=== PATIENT | female | born 1975 | race African-American/Black ===

== ENCOUNTER 2025-06-25 15:40 | Inpatient (IN) | payer MEDICAID, SELFPAY ==
[2025-06-25 15:41] VITALS: BP 113/80; PULSE 58; RESP 16; TEMP 37.1; O2SAT 100; BMI 20.5
[2025-06-25 16:40] VITALS: BP 124/77; PULSE 62; RESP 18; TEMP 36.6; O2SAT 99
[2025-06-25 16:52] LABS: Hematocrit 38.8 % (37-47); Hemoglobin 12.9 g/dL (12.0-15.0); Immature Granulocytes Count 0.020 X10^3/uL (0.0-0.0); Mean Corp Hgb Conc 33.2 g/dL (32-36); Mean Corpuscular Volume 90.9 fL (81-99); Mean Platelet Vol. 10.9 fl (6.2-12.0); NRBC Flagged by Analyzer 0 % (0-5); Platelet Count 176 K/mm3 (150-450); RBC Distribution Width CV 11.9 % (11.6-14.6); RBC Distribution Width SD 39.5 fl (35.1-43.9); Red Blood Count 4.27 M/mm3 (4.2-5.4); White Blood Count 7.1 K/mm3 (4.4-11.0)
[2025-06-25 17:00] VITALS: BP 119/74; PULSE 63; RESP 18; O2SAT 99
[2025-06-25 17:18] LABS: Internal QC Validated? YES +Cl - CLEAR BKGD; Pregnancy, Serum, hCG Quali. NEGATIVE Negative; Record Kit Lot#, Serum Preg. 964736
[2025-06-25 17:26] LABS: Alcohol, Blood (Medical)-Serum < 10.1 mg/dL (<=10.0)
[2025-06-25 17:48] LABS: AST(SGOT) 15 U/L (<=31); Alanine Aminotransfer ALT/SGPT 13 U/L (<=34); Albumin, Serum 3.9 g/dL (3.5-5.0); Alkaline Phosphatase 64 U/L (35-104); Anion Gap 11 (5-15); BUN 15 mg/dL (4-19); BUN/Creat Ratio 23.3 RATIO (10-20); Calcium,Total 8.8 mg/dL (7.6-11.0); Carbon Dioxide 22.2 mmol/L (21.0-32.0); Chloride 106 mmol/L (98-108); Estimated Creatinine Clearance 85.95 ml/min (50-250); Globulin 1.9 g/dL (2.2-4.2); Glucose 86 mg/dL (70-99); Potassium 3.6 mmol/L (3.3-5.1)
--- NOTE | 2025-06-25 17:58 | EX.ED.SAOD ---
HPI History of Present Illness Chief Complaint: Substance Abuse Informant: patient Narrative Narrative: Patient is a 49-year-old female with history of polysubstance abuse presenting for request of detox from cocaine and fentanyl. Patient states has been using regularly for the past few years and on for the past 10 years. She states she snorts it. She states she last used fentanyl 1 to 2 days ago and last used cocaine this morning. She is she started feel withdrawal symptoms of restlessness, mild nausea, anxiety, insomnia and diarrhea. She is feeling congestion and myalgias. Does smoke cigarettes. Denies any alcohol use. No other complaints or concerns at this time. [facility] Medical History Arthritis Substance abuse Neuropathy Home Medications ?Medication ?Instructions ?Recorded ?Last Taken ?Type gabapentin 800 mg tablet 800 mg PO 4X/DAY pain 06/25/25 Unknown History ibuprofen 800 mg tablet 800 mg PO TID PRN PRN pain 06/25/25 Unknown History trazodone 100 mg tablet 100 mg PO QHS mood 06/25/25 Unknown History Allergy/AdvReac Type Severity Reaction Status Date / Time No Known Allergies Allergy Verified 06/25/25 15:43 Social History Smoking Status: Current every day smoker tobacco type: cigarettes and e-cigarettes ROS ROS ED Constitutional Constitutional ED: Reports chills and sweats; Denies fever(s) ENT ENT ED: Denies sore throat Cardiovascular Cardiovascular: Denies chest pain Respiratory/Chest Respiratory/Chest: Denies cough or dyspnea Gastrointestinal Gastrointestinal: Reports diarrhea and nausea; Denies abdominal pain Musculoskeletal Musculoskeletal: Reports arthralgias, myalgias and neck pain Integumentary Denies rash Neurologic Neurologic: Reports headache(s) and weakness; Denies paresthesias Psychiatric Psychiatric: Reports anxiety; Denies depression, suicidal ideation, suicidal thoughts or other Hematologic/Lymphatic Hematologic/Lymphatic: Denies easy bleeding or easy bruising EXAM Physical Exam Const Vital Signs: 06/25/25 15:41 06/25/25 16:40 06/25/25 17:00 Temperature 98.8 F 97.8 F Temperature Source Oral Pulse Rate 58 L 62 63 Respiratory Rate 16 18 18 Blood Pressure 113/80 124/77 H 119/74 Blood Pressure Mean 91 92 89 Pulse Ox 100 99 99 Oxygen Delivery Method Room Air Room Air 06/25/25 18:00 Temperature Temperature Source Pulse Rate 69 Respiratory Rate 18 Blood Pressure 106/69 Blood Pressure Mean 81 Pulse Ox 98 Oxygen Delivery Method Room Air Positive well nourished and well developed General Appearance ED: well developed and NAD HEENT Reports moist mucous membranes Eyes PERRL and EOMs intact bilaterally Neck supple and no JVD Chest Wall inspection of chest normal Resp normal respiratory effort and clear to auscultation bilaterally Cardio regular rate, regular rhythm and no murmurs GI soft to palpation and non-tender Extremity General Extremety ED: Negative for edema General Extremity: Negative for edema Neuro oriented x3 Sensorium / Orientation: alert Motor Exam: Negative for general weakness Psych mental status grossly normal and thought process normal Skin Lesions: no lesions Rashes: no rashes MDM MDM MDM Narrative Medical decision making narrative: Patient evaluated for request of detox from cocaine and fentanyl. She is hemodynamically stable in the emergency room. Is given Motrin and Zofran for symptoms in the emergency room. Protocol labs for addiction medicine admission is obtained including CBC, CMP and urine drug as well as alcohol. Patient is positive for buprenorphine, fentanyl and cocaine. Patient will be admitted. Case discussed with hospitalist, Dr. St. Patient remains hemodynamically stable in the emergency room. She is agreeable to admission to our [facility] program Lab Data Labs: Laboratory Results - last 24 hr 06/25/25 06/25/25 06/25/25 16:27 16:32 17:10 WBC 7.1 RBC 4.27 Hgb 12.9 Hct 38.8 MCV 90.9 MCH 30.2 MCHC 33.2 RDW Std Deviation 39.5 RDW Coeff of Schuyler 11.9 Plt Count 176 MPV 10.9 Immature Gran % (Auto) 0.300 Neut % (Auto) 57.0 Lymph % (Auto) 31.7 [place] % (Auto) 7.6 Eos % (Auto) 2.7 Baso % (Auto) 0.7 Absolute Neuts (auto) 4.1 Absolute Lymphs (auto) 2.25 Nucleated RBC % 0 Sodium 139 Potassium 3.6 Chloride 106 Carbon Dioxide 22.2 Anion Gap 11 BUN 15 Creatinine 0.64 L Estim Creat Clear Calc 85.95 Est GFR (MDRD) Non-Af 110 BUN/Creatinine Ratio 23.3 H Glucose 86 Calcium 8.8 Total Bilirubin 0.35 AST 15 ALT 13 Alkaline Phosphatase 64 Total Protein 5.8 L Albumin 3.9 Globulin 1.9 L Albumin/Globulin Ratio 2.1 Serum , Qual NEGATIVE Urine Opiates Screen NEGATIVE U Buprenorphine Qual PRESUMPTIVE POSITIVE Ur Oxycodone Screen NEGATIVE Urine Methadone Screen NEGATIVE Urine Fentanyl Screen PRESUMPTIVE POSITIVE Ur Barbiturates Screen NEGATIVE Ur Phencyclidine Scrn NEGATIVE Ur Amphetamines Screen NEGATIVE U Benzodiazepines Scrn NEGATIVE Urine Cocaine Screen PRESUMPTIVE POSITIVE U Cannabinoids Screen NEGATIVE Ethyl Alcohol < 10.1 Discharge Plan Dx/Rx/DC Orders Clinical Impression: Desire for detoxification, Polysubstance abuse, Opioid withdrawal Disposition Disposition: Acute Care Hospital [facility] Discharge Date/Time: 06/25/25 20:15
[2025-06-25 18:00] VITALS: BP 106/69; PULSE 69; RESP 18; O2SAT 98
--- NOTE | 2025-06-25 18:19 | HP.PCM.HOS_ITS ---
HPI - General General Date of Admission: 06/25/25 Date of Service: 06/25/25 Chief Complaint: Opiate withdrawal with desire for detox HPI Narrative SAURABH ELENA, is a 49 F who presented to [facility] ED on 06/25/2025 with opiate withdrawal and desire for detox. She has no significant past medical history. Has never gone through inpatient detox before. She follows with an outpatient substance abuse program in [place], and the nurse there recommended she come here for inpatient detox today. Patient snorts cocaine and fentanyl. She has been using fairly regularly for the past several years. No IV drug use. She last used fentanyl yesterday and cocaine this morning. In the ED she was hemodynamically stable on room air at rest. CBC and CMP were benign. UDS positive for fentanyl and cocaine. Given desire for detox, hospitalist was contacted for admission. I saw the patient at bedside in the ED. Patient was pleasant and mildly anxious appearing but otherwise sitting back in bed and conversing normally. She noted withdrawal symptoms currently of anxiety, restlessness, nausea and myalgias. She otherwise denies any acute concerns currently. Will be admitted for further management. [facility] Medical History (Updated 06/25/25 @ 19:[address], DO) Arthritis Substance abuse Neuropathy Home Medications ?Medication ?Instructions ?Recorded ?Last Taken ?Type gabapentin 800 mg tablet 800 mg PO 4X/DAY 06/25/25 Un known History ibuprofen 800 mg tablet 800 mg PO TID PRN PRN pain 0 06/25/25 Unknown History trazodone 100 mg tablet 100 mg PO QHS 06/25/25 Unkno wn History Allergy/AdvReac Type Severity Reaction Status Date / Time No Known Allergies Allergy Verified 06/25/25 15:43 Social History Smoking Status: Current every day smoker tobacco type: cigarettes and e- cigarettes ROS Constitutional Constitutional: Reports fatigue; Denies chills, fever(s) or weakness Cardiovascular Cardiovascular: Denies chest pain Respiratory/Chest Respiratory/Chest: Denies shortness of breath at rest Gastrointestinal Gastrointestinal: Reports nausea; Denies abdominal pain, constipation, diarrhea or vomiting Genitourinary Genitourinary: Denies dysuria Musculoskeletal Musculoskeletal: Reports myalgias; Denies arthralgias Psychiatric Psychiatric: Reports anxiety Vital Signs Vital Signs Vital Signs: 06/25/25 15:41 06/25/25 16:40 06/25/25 17:00 Temperature 98.8 F 97.8 F Temperature Source Oral Pulse Rate 58 L 62 63 Respiratory Rate 16 18 18 Blood Pressure 113/80 124/77 H 119/74 Blood Pressure Mean 91 92 89 Pulse Ox 100 99 99 Oxygen Delivery Method Room Air Room Air 06/25/25 18:00 Temperature Temperature Source Pulse Rate 69 Respiratory Rate 18 Blood Pressure 106/69 Blood Pressure Mean 81 Pulse Ox 98 Oxygen Delivery Method Room Air Weight Weight: 50.848 kg Body Mass Index (BMI) 20.5 Physical Exam Const alert, oriented x3, no apparent distress and average body habitus Constitutional Narrative: Pleasant middle-age female, mildly anxious appearing but otherwise sitting back fairly comfortably in bed, conversing normally, in no acute distress. General Appearance: cooperative and comfortable HEENT normocephalic, head/scalp atraumatic, hearing grossly normal bilaterally, nasal mucous membranes and turbinates normal and moist oral mucous membranes Eyes PERRL, EOMs intact bilaterally and conjunctivae normal Neck full ROM Chest inspection of chest normal Resp normal respiratory effort, normal air movement, no use of accessory muscles and clear to auscultation bilaterally Cardio regular rate, regular rhythm, no murmurs and peripheral pulses 2+ throughout GI normal to inspection, nondistended, normoactive bowel sounds, soft to palpation, non-tender and non-distended Back/Spine normal ROM Extremity normal to inspection, full ROM and no pedal edema Skin no rashes or lesions noted Psych mental status grossly normal Mood & Affect: anxious Results Lab / Micro Data 06/25/25 16:27 06/25/25 16:27 Labs: Laboratory Results - last 24 hr 06/25/25 16:27: WBC 7.1, RBC 4.27, Hgb 12.9, Hct 38.8, MCV 90.9, MCH 30.2, MCHC 33.2, RDW Std Deviation 39.5, RDW Coeff of Schuyler 11.9, Plt Count 176, MPV 10.9, Immature Gran % (Auto) 0.300, Neut % (Auto) 57.0, Lymph % (Auto) 31.7, [place] % (Auto) 7.6, Eos % (Auto) 2.7, Baso % (Auto) 0.7, Absolute Neuts (auto) 4.1, Absolute Lymphs (auto) 2.25, Nucleated RBC % 0, Sodium 139, Potassium 3.6, Chloride 106, Carbon Dioxide 22.2, Anion Gap 11, BUN 15, Creatinine 0.64 L, Estim Creat Clear Calc 85.95, Est GFR (MDRD) Non-Af 110, BUN/Creatinine Ratio 23.3 H, Glucose 86, Calcium 8.8, Total Bilirubin 0.35, AST 15, ALT 13, Alkaline Phosphatase 64, Total Protein 5.8 L, Albumin 3.9, Globulin 1.9 L, Albumin/Globulin Ratio 2.1, Ethyl Alcohol < 10.1 06/25/25 16:32: Serum , Qual NEGATIVE Assessment & Plan Assessment/Plan (1) Polysubstance abuse: (2) Opioid withdrawal: (3) Desire for detoxification: PLAN: Plan Patient is a 49-year-old female who presented [facility] ED on 06/25/2025 for opiate withdrawal and desire for detox. 1. Polysubstance abuse with opiate withdrawal and desire for detox ? Admit under inpatient status to [facility]. Case management consulted. Snorts cocaine and fentanyl regularly, last use of fentanyl yesterday and cocaine this morning. UDS positive for cocaine, fentanyl and buprenorphine. She follows with an outpatient substance abuse program in [place]. OARRS reviewed and she had a long-acting buprenorphine injection in March that she stated was helpful for about 1 month. Last gabapentin refill was in February and she states she has been taking 800 mg tablets roughly twice daily recently. She is interested in inpatient rehab after discharge. Will treat with Subutex taper and other as needed medications per opiate withdrawal order set. Will order gabapentin 600 mg 3 times daily. Appreciate case management assistance. DVT prophylaxis: Lovenox CODE STATUS: Full code, verified Expect disposition: TBD Total clinical time spent by myself addressing the patient's medical issues, reviewing all the data, and collaborating with patient's care team: 42 minutes. Charges/Coding Visit Charges Inpatient E&M: 24781 Init Hosp L1
[2025-06-25 18:22] LABS: Barbiturate Urine NEGATIVE (< 200 ng/mL); Benzodiazepine Urine NEGATIVE (< 200 ng/mL); PCP Urine NEGATIVE (< 25 ng/mL); THC Urine NEGATIVE (< 50 ng/mL)
[2025-06-25 19:00] VITALS: PULSE 65; RESP 18; O2SAT 98
[2025-06-25 20:26] VITALS: BMI 19.9
[2025-06-25 20:30] VITALS: BP 112/70; PULSE 98; RESP 16; TEMP 36.9; O2SAT 100
[2025-06-26 00:26] VITALS: BP 101/51; PULSE 61; RESP 18; TEMP 36.9; O2SAT 98
[2025-06-26 05:21] VITALS: BP 113/68; PULSE 70; RESP 18; TEMP 37.2; O2SAT 98
--- NOTE | 2025-06-26 07:39 | PN.HOSP_ITS ---
Reason for Visit Chief Complaint: Opiate withdrawal with desire for detox Subjective Subjective Cleaning of rhinitis, nausea, myalgias, restless legs. Objective Data Objective Data Vital Signs: Vital Signs Temp Pulse Resp BP Pulse Ox O2 Del Method 37.2 C 70 18 113/68 98 Room Air 06/26/25 05:21 06/26/25 05:21 06/26/25 05:21 06/26/25 05:21 06/26/25 05:21 06/26/25 05:21 Oxygen Delivery Method Room Air Weight: 49.5 kg Body Mass Index (BMI) 19.9 Intake & Output: Intake and Output for Last 24 Hours 06/24/25 06/25/25 06/26/25 23:59 23:59 23:59 Intake Total 800 / 800 Balance 800 / 800 Lab / Micro Data 06/25/25 16:27 06/25/25 16:27 Labs: Laboratory Results - last 24 hr 06/25/25 16:27: WBC 7.1, RBC 4.27, Hgb 12.9, Hct 38.8, MCV 90.9, MCH 30.2, MCHC 33.2, RDW Std Deviation 39.5, RDW Coeff of Schuyler 11.9, Plt Count 176, MPV 10.9, Immature Gran % (Auto) 0.300, Neut % (Auto) 57.0, Lymph % (Auto) 31.7, [place] % (Auto) 7.6, Eos % (Auto) 2.7, Baso % (Auto) 0.7, Absolute Neuts (auto) 4.1, Absolute Lymphs (auto) 2.25, Nucleated RBC % 0, Sodium 139, Potassium 3.6, Chloride 106, Carbon Dioxide 22.2, Anion Gap 11, BUN 15, Creatinine 0.64 L, Estim Creat Clear Calc 85.95, Est GFR (MDRD) Non-Af 110, BUN/Creatinine Ratio 23.3 H, Glucose 86, Calcium 8.8, Total Bilirubin 0.35, AST 15, ALT 13, Alkaline Phosphatase 64, Total Protein 5.8 L, Albumin 3.9, Globulin 1.9 L, Albumin/Globulin Ratio 2.1, Ethyl Alcohol < 10.1 06/25/25 16:32: Serum , Qual NEGATIVE 06/25/25 17:10: Urine Opiates Screen NEGATIVE, U Buprenorphine Qual PRESUMPTIVE POSITIVE, Ur Oxycodone Screen NEGATIVE, Urine Methadone Screen NEGATIVE, Urine Fentanyl Screen PRESUMPTIVE POSITIVE, Ur Barbiturates Screen NEGATIVE, Ur Phencyclidine Scrn NEGATIVE, Ur Amphetamines Screen NEGATIVE, U Benzodiazepines Scrn NEGATIVE, Urine Cocaine Screen PRESUMPTIVE POSITIVE, U Cannabinoids Screen NEGATIVE Physical Exam Const alert and no apparent distress Constitutional Narrative: Afebrile. Alert. Up in bed. HEENT head/scalp atraumatic Neuro Sensorium / Orientation: awake and alert Psych affect normal Assessment & Plan Assessment/Plan (1) Opioid withdrawal: PLAN: buprenorphine taper addiction medicine to help facilitate outpt program Patient requested referral to but they currently do not have availability so addiction services look into other options. PLAN: Plan Recent diagnosed with urinary tract infection and was given Augmentin. Dental have access to those urine studies so we will check a urinalysis here. Disposition: Likely patient should be ready for discharge on the . Charges/Coding Visit Charges Inpatient E&M: 05891 Subs Hosp L1
[2025-06-26 08:08] VITALS: BP 110/67; PULSE 64; RESP 18; TEMP 36.6; O2SAT 98
[2025-06-26] MEDS: Nicotine (PBKC) 14 MG Patch TD (09:04)
--- NOTE | 2025-06-26 10:02 | CASEMGMT ---
Addendum entered by Britt Owens 06/26/25 15:07: Pt will discharge home to get letter and drop off at [facility] for renewal prior to admitting inpatient. No additional needs noted at this time. HERNÁN remains available to follow. HEATHRE Arteaga Original Note: Social Work- HERNÁN met with [employer] agent, Kirsty, who reports that pt is on the phone with [facility] renewing DORIS. Pt plans to d/c inpatient. HERNÁN collaborated with [facility] coordinator. HEATHER Arteaga
--- NOTE | 2025-06-26 11:02 | ADDICTION ---
This technical proposal writer met with PT to conduct ASAM, MSE, DUDIT assessments and to plan for d/c. PT A+Ox4 and participated appropriately. Pt reported that she would prefer to go to an inpatient tx facility. Clinician put in a referral for [facility]. If they do not have availability, will continue looking for a comparable tx center. Pt reports she needs to go home first. This worker started the process and pt will contact them once she is ready.
[2025-06-26] MEDS: Nicotine 2mg Gum (PBKC) 2 MG GUM PO (12:13)
[2025-06-26] MEDS: hydrOXYzine PAM 25 MG Capsule 50 MG PO (12:13)
[2025-06-26 12:15] VITALS: BP 102/71; PULSE 56; RESP 18; TEMP 36.8; O2SAT 98
[2025-06-26 15:47] VITALS: BP 104/75; PULSE 56; RESP 18; TEMP 37.2; O2SAT 98
[2025-06-26 21:08] VITALS: BP 107/68; PULSE 59; RESP 15; TEMP 37; O2SAT 99
[2025-06-27 04:30] VITALS: BP 104/71; PULSE 52; RESP 15; TEMP 36.6; O2SAT 100
--- NOTE | 2025-06-27 08:00 | PN.HOSP_ITS ---
Reason for Visit Chief Complaint: Opiate withdrawal with desire for detox Subjective Subjective Feeling much better today. Does feel that she is having some discharge when she urinates. Objective Data Objective Data Vital Signs: Vital Signs Temp Pulse Resp BP Pulse Ox O2 Del Method 36.6 C 52 L 15 104/71 100 Room Air 06/27/25 04:30 06/27/25 04:30 06/27/25 04:30 06/27/25 04:30 06/27/25 04:30 06/27/25 04:30 Oxygen Delivery Method Room Air Weight: 49.5 kg Body Mass Index (BMI) 19.9 Intake & Output: Intake and Output for Last 24 Hours 06/25/25 06/26/25 06/27/25 23:59 23:59 23:59 Intake Total 1650 / 1650 100 / 100 Balance 1650 / 1650 100 / 100 Lab / Micro Data 06/25/25 16:27 06/25/25 16:27 Physical Exam Const alert and no apparent distress HEENT head/scalp atraumatic and moist oral mucous membranes Resp normal respiratory effort and no retractions Cardio regular rate and regular rhythm Assessment & Plan Assessment/Plan (1) Opioid withdrawal: PLAN: buprenorphine taper addiction medicine to help facilitate outpt program Patient requested referral to but they currently do not have availability so addiction services look into other options. PLAN: Plan Recent diagnosed with urinary tract infection and was given Augmentin. Check a urinalysis here. Just collected this morning. Disposition: Likely patient should be ready for discharge on the . Charges/Coding Visit Charges Inpatient E&M: 92876 [facility] Hosp L1
[2025-06-27 08:41] VITALS: BP 92/59; PULSE 59; RESP 16; TEMP 36.9; O2SAT 100
[2025-06-27] MEDS: hydrOXYzine PAM 25 MG Capsule 50 MG PO ×2 (08:52→17:02)
[2025-06-27] MEDS: Nicotine 2mg Gum (PBKC) 2 MG GUM PO (08:52)
[2025-06-27] MEDS: Nicotine (PBKC) 14 MG Patch TD (08:53)
[2025-06-27 10:35] LABS: Mucous, Urine 0 SEEN /hpf (<or=2+); Red Blood Cells-Urine 0 SEEN /hpf (0-5)
[2025-06-27 10:43] LABS: Color, Urine Yellow (Yellow); Glucose, Dipstick Normal (Normal); Ketone-Dipstick Negative (Negative); Leukocyte Esterase-Dipstick 25 /ul (Negative); Nitrite-Dipstick Negative (Negative); Occult Blood-Urine Negative /ul (Negative); Protein-Dipstick 15 mg/dl (Negative); Specific Gravity, Urine 1.025 (1.002-1.030); Urine Bilirubin Dipstick Negative (Negative)
[2025-06-27 10:54] LABS: Squamous Epithelial Cells - UA 0-5 SEEN /hpf (5-10)
--- NOTE | 2025-06-27 14:53 | CHAPLAIN ---
Type of Pastoral Visit _x__ Initial Visit ___ Follow-up Visit ___ On-call Visit ___ General Patient Visit ___ Spiritual Assessment ___ Family Conference ___ Bereavement ___ Rapid Response ___ Code Blue ___ Other (describe below) Pastoral Care Referral From _x__ Patient ___ Family ___ Nurse ___ Physician ___ Allergy Physician ___ Loom Fixer ___ Other (describe below) Sacrament/Intervention ___ Active listening ___ Anointing ___ Zoroastrianism ___ Bereavement ___ Communion ___ Marianela exploration ___ ___ Life review _x__ Prayer ___ Reconciliation ___ Sacrament of Sick _x__ Supportive presence ___ Wedding ___ Other (describe below) Pastoral Comments patient was awake but resting; pt had a Bible on her table; pt is offered support and presence; pt says that a prayer would be enough for now; pt states that she just would like to sleep or rest for now
[2025-06-27 20:00] VITALS: BP 109/68; PULSE 60; RESP 16; TEMP 36.9; O2SAT 100
[2025-06-27 22:18] VITALS: BP 113/67; PULSE 54; RESP 16; TEMP 36.4; O2SAT 100
[2025-06-28 04:25] VITALS: BP 106/64; PULSE 52; RESP 16; TEMP 36.6; O2SAT 99
[2025-06-28] MEDS: hydrOXYzine PAM 25 MG Capsule 50 MG PO (04:32)
[2025-06-28 09:00] VITALS: PULSE 58
[2025-06-28 09:04] VITALS: BP 100/54; PULSE 56; RESP 16; TEMP 37.1; O2SAT 99
[2025-06-28] MEDS: Nicotine (PBKC) 14 MG Patch TD (09:06)
[2025-06-28] MEDS: Nicotine 2mg Gum (PBKC) 2 MG GUM PO (09:06)
--- NOTE | 2025-06-28 11:10 | PCM.DC.SUM ---
Providers Date of Admission: 06/25/25 Primary Care Physician: Destiney Anthony NP, HOME SALES CONSULTANT-C Reason For Visit: OPIATE DETOX Diagnosis Discharge Diagnosis (1) Opioid withdrawal: Status: Acute Code(s): F11.93 - Opioid use, unspecified with withdrawal Plan: buprenorphine taper addiction medicine to help facilitate outpt program Patient requested referral to [facility] but they currently do not have availability so addiction services look into other options. Patient to be discharged to [facility] in [place]. Plan Recent diagnosed with urinary tract infection and was given Augmentin. Urinalysis here was negative. No need for antibiotics.. Medications at Discharge Home Medications gabapentin 800 mg tablet 800 mg PO 4X/DAY pain 06/25/25 ibuprofen 800 mg tablet 800 mg PO TID PRN PRN pain 06/25/25 trazodone 100 mg tablet 100 mg PO QHS mood 06/25/25 Hospital Course Operations None Procedures None Summary of Care Provided Hospital Course: This is a 49-year-old female who presents with opiate withdrawal. Patient was put on buprenorphine taper. Initially felt very unwell with numerous withdrawal symptoms, including restless legs, myalgias. Overall symptoms felt better as she was going through the treatment process with buprenorphine. Patient will be discharged to [facility] in [place], [place] in stable condition. Weight / BMI Weight Weight: 49.5 kg Body Mass Index (BMI) 19.9 ABG / Lab / Microbiology Data 06/25/25 16:27 06/25/25 16:27 D/C Instructions DC O2, CPAP, BIPAP Needs Home O2 Discharge instructions: No Meaningful Use Info Meaningful Use Meaningful Use Diagnoses (Choose all that apply): None applicable Discharge Plan Admission Admit Date/Time: 06/25/25 18:19 Primary Reason for Your Visit: Opiate withdrawal Attending Provider: Arnulfo Samuels Primary Care Provider: Destiney Anthony NP Consulting Providers: Christopher St Discharge Orders/Prescriptions Prescriptions: Continued ibuprofen 800 mg tablet 800 mg PO TID PRN PRN (Reason: pain) gabapentin 800 mg tablet 800 mg PO 4X/DAY trazodone 100 mg tablet 100 mg PO QHS Referrals / Follow Up: Destiney Anthony NP, HOME SALES CONSULTANT-C [Primary Care Provider] - Disposition Disposition (needs filled in before D/C Order can be placed): Home, Self Care Charges/Coding Visit Charges Inpatient E&M: 36059 Disch Hosp
--- NOTE | 2025-06-28 11:17 | PHA.DC.MR.R ---
Pharmacy [place] Med Reconciliation Pharmacy Service has performed discharge medication reconciliation for this patient. The patient's discharge medication list was reviewed for discrepancies and discrepancies were resolved. - No new medications at this time. Medications at Discharge Home Medications gabapentin 800 mg tablet 800 mg PO 4X/DAY pain 06/25/25 ibuprofen 800 mg tablet 800 mg PO TID PRN PRN pain 06/25/25 trazodone 100 mg tablet 100 mg PO QHS mood 06/25/25
--- NOTE | 2025-06-28 11:39 | CASEMGMT ---
Social Work- HERNÁN spoke with Kirsty, [employer], who reports that she completed letter for [facility] application and status is showing as progressed on portal. Kirsty reports that pt does not need to go home for letter, as pt expressed to her that pt was afraid if she went home, that she may not go to inpatient. HERNÁN updated pt. Pt reports that she does prefer to admit direct. HERNÁN called [phone] coordinator. Edgar reports that she is calling pt shortly and belives that she is screened and approved. HERNÁN updated pt and provided contact for [facility]. HERNÁN updated bedside nurse. HERNÁN remains available to follow. HEATHER Arteaga
== END 2025-06-28 13:21 | disposition home or self-care (01) | DRG 773 ==
LOC: ED 16:45 → MS3 19:29
PROVIDERS: Admitting Provider Hospitalist; Emergency Provider Emergency Medicine
DX: F11.13 Opioid abuse with withdrawal (principal); F14.99 Cocaine use, unspecified with unspecified cocaine-induced disorder; F17.210 Nicotine dependence, cigarettes, uncomplicated; F17.290 Nicotine dependence, other tobacco product, uncomplicated
CPT/HCPCS: 36415; 80053; 80307; 81001; 82077; 84703; 85025; 87086; 87088; 99283